=== PATIENT | female | born 1995 | race Caucasian/White ===

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

== ENCOUNTER 2020-11-20 21:56 | Emergency (ER) | payer SELFPAY ==
[~2020-11-20 21:56] MED LIST: COLACE 100MG C100 MG PO; FLONASE 0.05% N16 GM; IBUPROFEN800 MG PO; NORCO 5-325 TA1 EACH PO; PREDNISONE 50 M50 MG PO; VENTOLIN HFA 66.7 GM INH; ZITHROMAX250 MG PO
[2020-11-22 23:09] LABS: CHLAMYDIA TRACHOMATIS, NAA Negative (Negative); NEISSERIA GONORRHOEAE, NAA Negative (Negative)
== END 2020-11-21 01:50 | disposition home or self-care (01) ==
LOC: ER1 21:56
PROVIDERS: Physician Assistant
DX: B37.3 Candidiasis of vulva and vagina (principal); Z87.442 Personal history of urinary calculi; F17.210 Nicotine dependence, cigarettes, uncomplicated; Z90.89 Acquired absence of other organs
CPT/HCPCS: 81001; 84703; 87086; 87210; 99283